=== PATIENT | female | born 1965 | race Caucasian/White ===

== ENCOUNTER 2020-09-04 01:34 | Emergency (ER) | payer SELFPAY ==
[~2020-09-04] VITALS: Ht 157.5 cm; Wt 82.0 kg
[2020-09-04] MEDS ORDERED: VANCOMYCIN 1GM IVPB FOR OMNI 250 ML IV ONE (02:00)
--- NOTE | 2020-09-04 02:00 | PHYS DOC ---
Past Medical History Past Medical History: No Pertinent History Past Surgical History: Tonsillectomy, Tubal ligation Smoking Status: Never Smoker Alcohol Use: None Drug Use: Marijuana General Adult EDM: Chief Complaint: LOWER EXT PAIN HPI: HPI: Patient is a 55 year old female with no past medical history presents with the chief complaint of right inner thigh redness with swelling onset 3 days ago. Patient also complains of bilateral feet back and swelling. On exam patient his dry cracked skin and peeling skin of her bilateral Review of Systems: Review of Systems: Constitutional: Denies fever or chills. [] Eyes: Denies change in visual acuity. [] HENT: Denies nasal congestion or sore throat. [] Respiratory: Denies cough or shortness of breath. [] Cardiovascular: Denies chest pain or edema. [] GI: Denies abdominal pain, nausea, vomiting, bloody stools or diarrhea. [] : Denies dysuria. [] Musculoskeletal: Denies back pain or joint pain. [] Integument: Denies rash. [] Neurologic: Denies headache, focal weakness or sensory changes. [] Endocrine: Denies polyuria or polydipsia. [] Lymphatic: Denies swollen glands. [] Psychiatric: Denies depression or anxiety. [] Heart Score: Risk Factors: Risk Factors: DM, Current or recent (<one month) smoker, HTN, HLP, family history of CAD, obesity. Risk Scores: Score 0 - 3: 2.5% MACE over next 6 weeks - Discharge Home Score 4 - 6: 20.3% MACE over next 6 weeks - Admit for Clinical Observation Score 7 - 10: 72.7% MACE over next 6 weeks - Early Invasive Strategies Allergies: Allergies: Allergies Coded Allergies Type Severity Reaction Last Updated Verified No Known Drug Allergies 12/22/13 No Physical Exam: PE: Constitutional: Well developed, well nourished, no acute distress, non-toxic appearance. [] HENT: Normocephalic, atraumatic, bilateral external ears normal, oropharynx moist, no oral exudates, nose normal. [] Eyes: PERRLA, EOMI, conjunctiva normal, no discharge. [] Neck: Normal range of motion, no tenderness, supple, no stridor. [] Cardiovascular:Heart rate regular rhythm, no murmur [] Lungs & Thorax: Bilateral breath sounds clear to auscultation [] Abdomen: Bowel sounds normal, soft, no tenderness, no masses, no pulsatile masses. [] Skin: Scaly dry cracking sole feet and toes, finger tips and palm hands. Right inner thigh-- warm to touch 9x4cm Back: No tenderness, no CVA tenderness. [] Extremities: No tenderness, no cyanosis, no clubbing, ROM intact, no edema. [] Neurologic: Alert and oriented X 3, normal motor function, normal sensory funct ion, no focal deficits noted. [] Psychologic: Affect normal, judgement normal, mood normal. [] EKG: EKG: [] Radiology/Procedures: Radiology/Procedures: [] Course & Med Decision Making: Course & Med Decision Making Pertinent Labs and Imaging studies reviewed. (See chart for details) [] Treatment included vancomycin. Patient discharged home on clotrimazole topical bid x 14 days and keflex Dragon Disclaimer: Dragon Disclaimer: This electronic medical record was generated, in whole or in part, using a voice recognition dictation system. Departure Departure Impression: Primary Impression: Cellulitis Additional Impression: Tinea Disposition: 01 DC HOME SELF CARE/HOMELESS Condition: STABLE Referrals: NO PCP (PCP) Patient Instructions: Athlete's Foot, Cellulitis Scripts Cephalexin (CEPHALEXIN) 500 Mg Capsule 1 CAP PO QID, #40 CAP Prov: LEV GAGNON DO 09/04/20 Clotrimazole (CLOTRIMAZOLE) 15 Gm Cream..g. 1 BENITA TP BID for 14 Days, #30 GM Prov: LEV GAGNON DO 09/04/20 LEV GAGNON DO Sep 04, 2020 02:00
[2020-09-04 02:19] LABS: BASO # 0.1 x10^3/uL (0.0-0.2); BASO % 1 % (0-3); EOS % 10 % (0-3); HEMOGLOBIN 12.1 g/dL (12.0-15.5); LYMPH % 21 % (24-48); MEAN CORPUSCULAR HEMOGLOBIN 27 pg (25-35); MEAN CORPUSCULAR HGB CONC 33 g/dL (31-37); MEAN CORPUSCULAR VOLUME 83 fL (79-100); MONO # 0.9 x10^3/uL (0.0-1.1); MONO % 9 % (0-9); NEUT # 5.5 x10^3/uL (1.8-7.7); NEUT % 59 % (31-73); PLATELET COUNT 254 x10^3/uL (140-400); RED BLOOD COUNT 4.45 x10^6/uL (3.50-5.40); RED CELL DISTRIBUTION WIDTH 14.8 % (11.5-14.5); WHITE BLOOD COUNT 9.4 x10^3/uL (4.0-11.0)
[2020-09-04 02:25] LABS: CALCIUM 8.5 mg/dL (8.5-10.1); GFR 57.1; POTASSIUM 4.1 mmol/L (3.5-5.1)
[2020-09-04] MEDS ORDERED: VANCOMYCIN PER PHARMACY MC PRN (02:30)
[2020-09-04] MEDS ORDERED: VANCOMYCIN 2 GM in IV NORMAL SALINE 500ML BAG 500 ML IV ONE (02:30)
[2020-09-04 02:31] LABS: ALBUMIN 2.9 g/dL (3.4-5.0); ALBUMIN/GLOBULIN RATIO 0.7 (1.0-1.7); TOTAL BILIRUBIN 0.3 mg/dL (0.2-1.0); TOTAL PROTEIN 7.2 g/dL (6.4-8.2)
[2020-09-04] MEDS ORDERED: CEPH500C PO (03:58)
[2020-09-04] MEDS ORDERED: CLOT15CR23 TP (03:58)
[2020-09-04 04:33] VITALS: BP 145/75
== END 2020-09-04 04:45 | disposition home or self-care (01) ==
LOC: ER 01:34
DX: L03.115 Cellulitis of right lower limb (principal); R60.0 Localized edema; B35.3 Tinea pedis; F12.90 Cannabis use, unspecified, uncomplicated; Z90.89 Acquired absence of other organs; Z98.51 Tubal ligation status
CPT/HCPCS: 36415; 80053; 83605; 85025; 96365; 96366; 99284; J3370; J7040

== ENCOUNTER 2021-06-11 08:10 | Emergency (ER) | payer SELFPAY ==
[~2021-06-11 08:10] MED LIST: CEPH500C PO; CLOT15CR23 TP
== END 2021-06-11 08:12 | disposition left against medical advice (07) ==
LOC: ER 08:10
DX: R22.42 Localized swelling, mass and lump, left lower limb (principal); Z53.21 Procedure and treatment not carried out due to patient leaving prior to being seen by health care provider

== ENCOUNTER → 2021-08-28 | Outpatient (CLI) | payer OTHER ==
--- NOTE | 2021-08-28 12:03 | RAD ---
EXAM: Lumbar spine, 2 views. HISTORY: Pain. COMPARISON: None. FINDINGS: 2 views of the lumbar spine are obtained. There is lumbar hyperlordosis. There is 6 mm grad e 1 anterolisthesis of L4 on L5 and 3 mm grade 1 anterolisthesis of L3 on L4. There is minimal retrol isthesis of L1 on L2 and L2 on L3. There is multilevel endplate remodeling, primarily at the lower th oracic levels. There is multilevel facet arthropathy, predominantly at the lower lumbar levels. There is disc space narrowing at L4-L5 and L5-S1. IMPRESSION: 1. 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 2. Lumbar hyperlordosis and grade 1 anterolisthesis of L3 on L4 and L4 on L5. 3. No acute osseous finding. Electronically signed by: Eugenia Newton MD (08/28/2021 12:00 PM) [id number]
== END ==
LOC: RAD 10:42
PROVIDERS: ATTEND Anesthesiology Pain Medicine
DX: Z02.71 Encounter for disability determination (principal); M47.814 Spondylosis without myelopathy or radiculopathy, thoracic region; M47.816 Spondylosis without myelopathy or radiculopathy, lumbar region; M43.16 Spondylolisthesis, lumbar region; M40.46 Postural lordosis, lumbar region; M48.8X6 Other specified spondylopathies, lumbar region; M48.061 Spinal stenosis, lumbar region without neurogenic claudication
CPT/HCPCS: 72100